=== PATIENT | female | born 1980 | race Caucasian/White ===

== ENCOUNTER 2017-03-22 17:08 | Emergency (ER) | payer MEDICARE, MEDICAID ==
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
[2017-03-22 18:16] LABS: CHLORIDE,CL 106 mmol/L (101-111); SODIUM,NA 140 mmol/L (135-145)
[2017-03-22 18:45] VITALS: BP 114/65
== END 2017-03-22 18:35 | disposition home or self-care (01) ==
LOC: DL.ED 17:08
DX: R56.9 Unspecified convulsions (principal); F17.210 Nicotine dependence, cigarettes, uncomplicated; Z79.899 Other long term (current) drug therapy; Z88.0 Allergy status to penicillin; Z88.1 Allergy status to other antibiotic agents; Z88.5 Allergy status to narcotic agent; Z88.8 Allergy status to other drugs, medicaments and biological substances; Z91.040 Latex allergy status
CPT/HCPCS: 36415; 80053; 80305; 81001; 85025; 99284

== ENCOUNTER 2017-04-23 15:57 | Emergency (ER) | payer MEDICARE, MEDICAID ==
[2017-04-23 17:50] VITALS: BP 120/80
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
== END 2017-04-23 18:43 | disposition home or self-care (01) ==
LOC: DL.ED 15:57
DX: N91.2 Amenorrhea, unspecified (principal); J45.909 Unspecified asthma, uncomplicated; F41.9 Anxiety disorder, unspecified; K21.9 Gastro-esophageal reflux disease without esophagitis; F20.9 Schizophrenia, unspecified; Z88.0 Allergy status to penicillin; Z88.1 Allergy status to other antibiotic agents; Z88.5 Allergy status to narcotic agent; Z91.040 Latex allergy status; Z88.8 Allergy status to other drugs, medicaments and biological substances; Z91.018 Allergy to other foods; Z79.899 Other long term (current) drug therapy
CPT/HCPCS: 81001; 81025; 99283

== ENCOUNTER 2022-06-11 18:51 | Emergency (ER) | payer MEDICARE, MEDICAID ==
[2022-06-11 19:09] VITALS: BP 131/87; PULSE 98
[2022-06-11] MEDS ORDERED: Acetaminophen 500 MG Tab PO ONE (20:50)
[2022-06-11 21:50] LABS: ANION GAP 9.5 mEq/L (7-13)
== END 2022-06-11 22:15 | disposition home or self-care (01) ==
LOC: DL.ED 18:51
DX: M79.661 Pain in right lower leg (principal); R25.2 Cramp and spasm; Z88.1 Allergy status to other antibiotic agents; Z88.8 Allergy status to other drugs, medicaments and biological substances; Z91.040 Latex allergy status; Z88.6 Allergy status to analgesic agent; Z88.0 Allergy status to penicillin; Z91.018 Allergy to other foods; Z79.899 Other long term (current) drug therapy
CPT/HCPCS: 36415; 73630; 80048; 83735; 99283; A9270

== ENCOUNTER 2022-06-30 14:57 | Emergency (ER) | payer MEDICARE, MEDICAID ==
[2022-06-30 15:23] VITALS: BP 135/85; PULSE 101
[2022-06-30 17:00] LABS: ANION GAP 14.7 mEq/L (7-13); CHLORIDE,CL 103 mmol/L (98-107); SODIUM,NA 137 mmol/L (136-145)
[2022-06-30 17:17] LABS: ESTIMATED GFR 115 mL/min (>=60)
[2022-06-30 17:18] LABS: ACETAMINOPHEN 0 ug/mL (10-30 (Therapeutic))
== END 2022-06-30 17:42 ==
LOC: DL.ED 14:57
DX: R45.851 Suicidal ideations (principal); F17.210 Nicotine dependence, cigarettes, uncomplicated; Z88.1 Allergy status to other antibiotic agents; Z88.8 Allergy status to other drugs, medicaments and biological substances; Z91.040 Latex allergy status; Z88.6 Allergy status to analgesic agent; Z88.0 Allergy status to penicillin; Z79.899 Other long term (current) drug therapy
CPT/HCPCS: 36415; 80053; 80143; 80179; 80307; 83605; 83735; 85025; 99284